=== PATIENT | female | born 1960 | race Caucasian/White ===

== ENCOUNTER 2020-10-06 18:27 | Emergency (ER) | payer BC ==
[2020-10-06] MEDS ORDERED: DiphenhydrAMINE HCL 50 MG/ML VIAL ONE (19:48)
[2020-10-06] MEDS ORDERED: KETOROLAC TROMETHAMINE 15MG/ML ONE (19:48)
[2020-10-06] MEDS ORDERED: PROCHLORPERAZINE EDISYLATE 10 MG/2 ML VIAL ONE (19:49)
[2020-10-06] MEDS ORDERED: SODIUM CHLORIDE 0.9% 1000ML 1,000 ML IV ONE (19:49)
[2020-10-06 20:02] LABS: BASOPHILS % (AUTO) 1.1 % (0.0-5.0); EOSINOPHILS % (AUTO) 0.3 % (0.0-8.0); LYMPHOCYTES % (AUTO) 20.4 % (21.0-51.0); MEAN CORPUSCULAR HEMOGLOBIN 31.7 pg (27.0-33.0); MEAN CORPUSCULAR HGB CONC 35.9 g/dL (32.0-36.0); MEAN CORPUSCULAR VOLUME 88.2 fL (79-99); MONOCYTES % (AUTO) 5.6 % (3.0-13.0); NEUTROPHILS % (AUTO) 72.4 % (40.0-77.0); PLATELET COUNT (AUTO) 307 K/uL (130-400); RED BLOOD CELL COUNT(AUTO) 4.99 MIL/uL (4.00-5.50); RED CELL DISTRIBUTION WIDTH 12.7 % (11.0-15.5); WHITE BLOOD COUNT (AUTO) 11.1 K/uL (4.8-10.8)
[2020-10-06 20:12] LABS: POTASSIUM 4.1 mmol/L (3.5-5.1)
[2020-10-06 20:17] LABS: ALBUMIN 4.3 g/dL (3.5-5.0); BILIRUBIN,TOTAL 0.4 mg/dL (0.2-1.0); TOTAL PROTEIN, SERUM 8.9 g/dL (6.0-8.3)
[2020-10-06] MEDS ORDERED: FAMOTIDINE/PF 20 MG/2 ML VIAL IV ONE (21:13)
[2020-10-06] MEDS ORDERED: METHYLPREDNISOLONE SOD SUCC 40MG/ML 1ML ONE (21:23)
== END 2020-10-06 21:39 | disposition home or self-care (01) ==
LOC: EDH 18:27
DX: M79.18 Myalgia, other site (principal); K52.81 Eosinophilic gastritis or gastroenteritis; Z90.49 Acquired absence of other specified parts of digestive tract; Z90.710 Acquired absence of both cervix and uterus; Z72.0 Tobacco use; Z88.0 Allergy status to penicillin; Z88.2 Allergy status to sulfonamides
CPT/HCPCS: 36415; 74176; 80053; 85025; 96361; 96372; 96374; 96375; 99285; J0780; J1200; J1885; J2920; J3490; J7030

== ENCOUNTER 2021-01-23 12:07 | Emergency (ER) | payer BC ==
[2021-01-23 12:41] LABS: APPEARANCE,URINE Turbid (CLEAR); BILIRUBIN,URINE Negative (NEGATIVE); COLOR,URINE Yellow (YELLOW); GLUCOSE, URINE (UA) Negative (NEGATIVE); KETONES,URINE Negative (NEGATIVE); LEUKOCYTE ESTERASE ,URINE Small (NEGATIVE); NITRATE,URINE Positive (NEGATIVE); OCCULT BLOOD,URINE Trace (NEGATIVE); PH,URINE 5.5 (5.0-8.0); PROTEIN,URINE Trace mg/dL (NEGATIVE)
[2021-01-23 12:42] LABS: BASOPHILS % (AUTO) 1.2 % (0.0-5.0); HEMATOCRIT 43.7 % (36-48); LYMPHOCYTES % (AUTO) 28.4 % (21.0-51.0); MEAN CORPUSCULAR HEMOGLOBIN 30.3 pg (27.0-33.0); MEAN CORPUSCULAR HGB CONC 33.9 g/dL (32.0-36.0); MEAN CORPUSCULAR VOLUME 89.5 fL (79-99); MONOCYTES % (AUTO) 7.5 % (3.0-13.0); NEUTROPHILS % (AUTO) 61.6 % (40.0-77.0); PLATELET COUNT (AUTO) 328 K/uL (130-400); RED BLOOD CELL COUNT(AUTO) 4.88 MIL/uL (4.00-5.50); RED CELL DISTRIBUTION WIDTH 13.2 % (11.0-15.5); WHITE BLOOD COUNT (AUTO) 11.2 K/uL (4.8-10.8)
[2021-01-23 12:53] LABS: BACTERIA,URINE Many /HPF (None Seen); SQUAMOUS EPITHELIAL CELL,UR Many /HPF (0-2)
[2021-01-23 12:53] LABS: POTASSIUM 3.8 mmol/L (3.5-5.1)
[2021-01-23 12:58] LABS: ALBUMIN 4.1 g/dL (3.5-5.0); BILIRUBIN,TOTAL 0.3 mg/dL (0.2-1.0); TOTAL PROTEIN, SERUM 8.4 g/dL (6.0-8.3)
[2021-01-23] MEDS ORDERED: ONDANSETRON HCL 4 MG/2 ML VIAL ONE (13:48)
[2021-01-23] MEDS ORDERED: KETOROLAC 30MG VIAL (30MG/ML) ONE (13:48)
[2021-01-23] MEDS ORDERED: MORPHINE 4 MG SYG (4MG/1ML) ONE (13:49)
[2021-01-23] MEDS ORDERED: LACTATED RINGERS 1000ML IV ONE (14:03)
[2021-01-23] MEDS ORDERED: LEVOFLOXACIN 500 MG/D5W 100 ML 100 ML ONE (15:33)
[2021-01-23] MEDS ORDERED: HYDROCODONE/ACETAMINOPHEN 10/325 MG TAB ONE (16:55)
== END 2021-01-23 18:01 | disposition home or self-care (01) ==
LOC: EDH 12:07
DX: N12 Tubulo-interstitial nephritis, not specified as acute or chronic (principal); I10 Essential (primary) hypertension; R11.2 Nausea with vomiting, unspecified; E78.00 Pure hypercholesterolemia, unspecified; Z90.710 Acquired absence of both cervix and uterus; Z90.49 Acquired absence of other specified parts of digestive tract; Z88.0 Allergy status to penicillin; Z88.2 Allergy status to sulfonamides; Z72.0 Tobacco use
CPT/HCPCS: 36415; 74176; 80053; 81001; 82150; 83690; 85025; 87077; 87088; 87186; 93005; 96361; 96374; 96375; 99285; J1885; J1956; J2270; J2405; J7120